=== PATIENT | male | born 1950 | race Caucasian/White ===

== ENCOUNTER → 2024-07-04 | Outpatient (REF) | payer MEDICARE ==
[2024-06-25 14:22] LABS: BASOPHILS % 0.4 % (0.0-1.0); EOSINOPHILS % 1.6 % (0.0-6.0); HEMATOCRIT 31.4 % (38.2-49.6); HEMOGLOBIN 10.1 g/dL (14.0-18.0); LYMPHOCYTES # (AUTO) 0.7 (1.0-3.2); LYMPHOCYTES % 27.4 % (18.0-39.1); MEAN CORPUSCULAR HEMOGLOBIN 30.6 pg (28-32); MEAN CORPUSCULAR HGB CONC 32.2 g/dL (31-35); MEAN CORPUSCULAR VOLUME 95.2 fL (81-99); MONOCYTES # (AUTO) 0.2 (0.2-0.8); MONOCYTES % 7.5 % (4.4-11.3); NEUTROPHILS # (AUTO) 1.6 (2.1-6.9); NEUTROPHILS % 63.1 % (38.7-80.0); PLATELET COUNT 64 x10e3/uL (140-360); RED CELL DISTRIBUTION WIDTH 14.1 % (11.7-14.4); WHITE BLOOD COUNT 2.52 x10e3/uL (4.8-10.8)
[2024-06-25 14:45] LABS: INR 1.18; PROTHROMBIN TIME 15.7 seconds (11.9-14.5)
[2024-06-25 14:46] LABS: PARTIAL THROMBOPLASTIN TIME 31.6 seconds (23.8-35.5)
[2024-06-25 14:50] LABS: ANION GAP 11.3 mmol/L (8-16); CALCIUM 8.3 mg/dL (8.4-10.2); CREATININE, SERUM 1.82 mg/dL (0.72-1.25); POTASSIUM 4.3 mmol/L (3.5-5.1)
[~2024-07-04] MED LIST: CLOPIDOGREL75 MG PO; FLOMAX0.4 MG PO; GABAPENTIN300 MG PO; IRON INFUSION IV; LIPITOR20 MG PO; LOSARTAN POTAS100 MG PO; LOVENOX40 MG/0.4 SC; OMEPRAZOLE40 MG PO; OZEMPIC2 MG/0.75 PO; POTASSIUM CHLO10 ME1 PO; SERTRALINE HCL100 MG PO; VITAMIN B12 IM; VITAMIN D250 MCG PO
== END ==
LOC: OR 05:00 → EDSTATUS 08:00 → RAD 08:00
PROVIDERS: ATTEND Internal Medicine Gastroenterology
DX: Z01.818 Encounter for other preprocedural examination (principal); Z12.11 Encounter for screening for malignant neoplasm of colon; R13.10 Dysphagia, unspecified; I10 Essential (primary) hypertension; E11.9 Type 2 diabetes mellitus without complications; Z68.29 Body mass index [BMI] 29.0-29.9, adult; Z71.3 Dietary counseling and surveillance; Z87.891 Personal history of nicotine dependence
CPT/HCPCS: 36415; 80048; 85025; 85610; 85730; 93005

== ENCOUNTER → 2024-07-18 | Day surgery (SDC) | payer MEDICARE ==
[2024-07-18 10:46] VITALS: TEMP 97.4
[2024-07-18 11:06] VITALS: BP 133/84; PULSE 60; RESP 18; O2SAT 99
== END | disposition home or self-care (01) ==
LOC: OR 08:33
PROVIDERS: ATTEND Internal Medicine Gastroenterology
DX: Z12.11 Encounter for screening for malignant neoplasm of colon (principal); K57.30 Diverticulosis of large intestine without perforation or abscess without bleeding; K64.8 Other hemorrhoids; D12.3 Benign neoplasm of transverse colon; R13.10 Dysphagia, unspecified; K21.9 Gastro-esophageal reflux disease without esophagitis; Z98.84 Bariatric surgery status
CPT/HCPCS: 36415; 43235; 45385; 82948; 88305

== ENCOUNTER → 2024-08-19 | Outpatient (REF) | payer MEDICARE ==
[~2024-08-19] MED LIST changes: +IOPAMIDOL 370 MG/ML 100 ML INFUS..BTL INJ ONE; +SODIUM CHLORIDE 0.9% 500ML 500 ML ONE
[2024-08-19 10:36] LABS: EST GLOMERULAR FILTRATION RATE 33.0 ML/MIN (>=60)
== END ==
LOC: CT 08:30
PROVIDERS: ATTEND Student in an Organized Health Care Education/Training Program
DX: R19.09 Other intra-abdominal and pelvic swelling, mass and lump (principal)
CPT/HCPCS: 36415; 74177; 82565; 84520; 96360; J7040; Q9967

== ENCOUNTER → 2024-08-19 | Outpatient (REF) | payer MEDICARE ==
[~2024-08-19] MED LIST changes: -IOPAMIDOL 370 MG/ML 100 ML INFUS..BTL INJ ONE; -SODIUM CHLORIDE 0.9% 500ML 500 ML ONE
== END ==
LOC: US 08:59
PROVIDERS: ATTEND Internal Medicine Hematology & Oncology
DX: D61.818 Other pancytopenia (principal)
CPT/HCPCS: 76700

== ENCOUNTER 2024-09-27 16:43 | Inpatient (IN) | payer MEDICARE, OTHER ==
[~2024-09-27] VITALS: Ht 162.6 cm; Wt 75.7 kg
[2024-09-27 17:14] VITALS: TEMP 98.4
[2024-09-27] MEDS: TRAMADOL HCL 50 MG TAB PO ONE (19:03)
[2024-09-27] MEDS: KETOROLAC TROMETHAMINE 30 MG/ML VIAL IM STA (19:03)
[2024-09-27 19:45] VITALS: PULSE 95; RESP 18
[2024-09-27] MEDS: SODIUM CHLORIDE 0.9% 1000ML 1,000 ML IV SCH (20:40)
[2024-09-27] MEDS: Morphine 4mg INJECTION 4 MG/ML INJ IV PRN (20:40)
[2024-09-27 22:33] LABS: EST GLOMERULAR FILTRATION RATE 37.0 ML/MIN (>=60)
[2024-09-27 22:34] LABS: BASOPHILS % 0.3 % (0.0-1.0); EOSINOPHILS % 0.0 % (0.0-6.0); LYMPHOCYTES % 5.2 % (18.0-39.1); MONOCYTES % 8.0 % (4.4-11.3); NEUTROPHILS % 86.0 % (38.7-80.0); RED CELL DISTRIBUTION WIDTH 13.1 % (11.7-14.4)
[2024-09-28] VITALS (13 sets, daily range): BP systolic 119–165; BP diastolic 72–107; PULSE 65–86; RESP 16–18; TEMP 97.5–98.8; O2SAT 95–99
[2024-09-28] MEDS: ONDANSETRON HCL INJ 2MG/ML 2ML 2 MG/ML VIAL IV PRN (01:49)
[2024-09-28 06:26] LABS: BASOPHILS % 0.3 % (0.0-1.0); EOSINOPHILS % 1.6 % (0.0-6.0); LYMPHOCYTES % 14.4 % (18.0-39.1); MONOCYTES % 6.1 % (4.4-11.3); NEUTROPHILS % 77.3 % (38.7-80.0); RED CELL DISTRIBUTION WIDTH 13.2 % (11.7-14.4)
[2024-09-28 06:56] LABS: EST GLOMERULAR FILTRATION RATE 38.0 ML/MIN (>=60)
[2024-09-28] MEDS ORDERED: HYDROCODON-ACE1 EAC9 PO (07:31)
[2024-09-28] MEDS ORDERED: TIZANIDINE HCL4 MG PO (07:31)
[2024-09-28] MEDS ORDERED: DIAZEPAM10 MG PO (07:31)
[2024-09-28] MEDS ORDERED: ONDANSETRON HCL INJ 2MG/ML 2ML 2 MG/ML VIAL IV PRN (09:45)
[2024-09-28] MEDS ORDERED: DIAZEPAM 5 MG TAB PO PRN (09:45)
[2024-09-28] MEDS ORDERED: HYDRALAZINE HCL 20 MG/ML VIAL IV PRN (09:45)
[2024-09-28 10:28] LABS: % IRON SATURATION 15 % (15-50)
[2024-09-28] MEDS ORDERED: GABAPENTIN 300 MG CAP PO SCH (14:00)
[2024-09-28] MEDS: TAMSULOSIN HCL 0.4 MG CAP PO SCH (16:44)
[2024-09-28] MEDS: SERTRALINE HCL 100 MG TAB PO SCH (16:44)
[2024-09-28] MEDS: DEXTROSE 5%/0.45% SOD CHL 1,000 ML IV SCH (16:46)
[2024-09-28] MEDS: TIZANIDINE HCL 4 MG TAB PO SCH (21:22)
[2024-09-28] MEDS: GABAPENTIN 300 MG CAP PO SCH (21:22)
[2024-09-28] MEDS: ATORVASTATIN 40 MG TAB PO SCH (21:22)
[2024-09-29] VITALS (8 sets, daily range): BP systolic 115–143; BP diastolic 70–77; PULSE 60–104; RESP 16–20; TEMP 97.5–98.7; O2SAT 94–98
[2024-09-29 06:00] LABS: BASOPHILS % 0.4 % (0.0-1.0); EOSINOPHILS % 3.9 % (0.0-6.0); LYMPHOCYTES % 21.0 % (18.0-39.1); MONOCYTES % 8.2 % (4.4-11.3); NEUTROPHILS % 66.1 % (38.7-80.0); RED CELL DISTRIBUTION WIDTH 13.3 % (11.7-14.4)
[2024-09-29] MEDS: PANTOPRAZOLE SOD 40 MG TABEC PO SCH (06:00)
[2024-09-29 06:54] LABS: EST GLOMERULAR FILTRATION RATE 40.0 ML/MIN (>=60)
[2024-09-29] MEDS: LOSARTAN POTASSIUM 100 MG TAB PO SCH (09:10)
[2024-09-29] MEDS ORDERED: LIDOCAINE HCL 2% LOCAL INJ 5 ML SDV VIAL INJ ONE (13:02)
[2024-09-29] MEDS ORDERED: FENTANYL CITRATE/PF 100MCG/2 ML INJ ONE (13:03)
[2024-09-29] MEDS ORDERED: PROPOFOL IV EMULSION 10 MG/ML 20 ML VIAL ONE (13:03)
[2024-09-29] MEDS ORDERED: ROCURONIUM BROMIDE 1 ML IV ONE (13:03)
[2024-09-29] MEDS ORDERED: DEXAMETHASONE SOD PHOS INJ 4 MG/ML SDV ONE (14:02)
[2024-09-29] MEDS ORDERED: EPHEDRINE SULFATE INJ 50 MG/ML VIAL ONE (14:03)
[2024-09-29] MEDS ORDERED: ACETAMINOPHEN 1000 MG/100 ML 100 ML IV ONE (15:16)
[2024-09-29] MEDS ORDERED: HYDROMORPHONE 2MG/ML ONE (15:31)
[2024-09-29] MEDS ORDERED: ONDANSETRON HCL INJ 2MG/ML 2ML 2 MG/ML VIAL ONE (15:39)
[2024-09-29] MEDS ORDERED: SUGAMMADEX SODIUM 200 MG/2 ML VIAL IV ONE (15:55)
[2024-09-29] MEDS: Morphine 4mg INJECTION 4 MG/ML INJ IV ONE (17:12)
[2024-09-30] VITALS (11 sets, daily range): BP systolic 122–157; BP diastolic 71–88; PULSE 56–76; RESP 16–20; TEMP 97.6–98.1; O2SAT 93–96
[2024-09-30] MEDS: ROPIVACAINE 123 MG, EPINEPHRINE HCL 1:1000 1ML 0.25 MG, CLONIDINE HCL 0.04 MG, KETOROLA... INJ ONE ×2 (09:18)
[2024-09-30] MEDS: METOPROLOL SUCCINATE 25 MG TAB XL PO SCH (09:21)
[2024-09-30] MEDS: LOSARTAN POTASSIUM 100 MG TAB PO SCH (09:22)
[2024-09-30] MEDS: ASPIRIN 81 MG CHEW TAB PO SCH (09:26)
[2024-10-01] VITALS (9 sets, daily range): BP systolic 117–139; BP diastolic 49–87; PULSE 63–88; RESP 18–21; TEMP 97.9–98.4; O2SAT 95–100
[2024-10-01 06:34] LABS: BASOPHILS % 0.0 % (0.0-1.0); EOSINOPHILS % 3.4 % (0.0-6.0); LYMPHOCYTES % 23.0 % (18.0-39.1); MONOCYTES % 9.6 % (4.4-11.3); NEUTROPHILS % 63.4 % (38.7-80.0); RED CELL DISTRIBUTION WIDTH 13.0 % (11.7-14.4)
[2024-10-01 06:57] LABS: EST GLOMERULAR FILTRATION RATE 36.0 ML/MIN (>=60)
[2024-10-02] VITALS (9 sets, daily range): BP systolic 116–137; BP diastolic 55–87; PULSE 55–75; RESP 16–18; TEMP 97.8–98.7; O2SAT 92–100
[2024-10-02] MEDS: HYDROCODONE/APAP 10MG-325MG TAB PO PRN (14:48)
[2024-10-02] MEDS: DOCUSATE SODIUM 100 MG CAP PO PRN (16:47)
[2024-10-03] VITALS (10 sets, daily range): BP systolic 127–148; BP diastolic 67–81; PULSE 59–78; RESP 16–20; TEMP 97.9–98.6; O2SAT 93–100
[2024-10-03 06:29] LABS: BASOPHILS % 0.5 % (0.0-1.0); EOSINOPHILS % 2.7 % (0.0-6.0); LYMPHOCYTES % 26.7 % (18.0-39.1); MONOCYTES % 10.4 % (4.4-11.3); NEUTROPHILS % 59.2 % (38.7-80.0); RED CELL DISTRIBUTION WIDTH 13.0 % (11.7-14.4)
[2024-10-03 06:57] LABS: EST GLOMERULAR FILTRATION RATE 39.0 ML/MIN (>=60)
[2024-10-03 07:36] LABS: PHOSPHORUS 2.7 MG/DL (2.3-4.7)
[2024-10-04] VITALS (11 sets, daily range): BP systolic 132–152; BP diastolic 67–84; PULSE 57–76; RESP 18–20; TEMP 97.6–98.6; O2SAT 93–100
[2024-10-05] VITALS (11 sets, daily range): BP systolic 118–148; BP diastolic 65–98; PULSE 52–74; RESP 17–20; TEMP 97.4–98.3; O2SAT 92–99
[2024-10-05 07:11] LABS: BASOPHILS % 0.6 % (0.0-1.0); EOSINOPHILS % 4.4 % (0.0-6.0); LYMPHOCYTES % 27.8 % (18.0-39.1); MONOCYTES % 10.6 % (4.4-11.3); NEUTROPHILS % 56.0 % (38.7-80.0); RED CELL DISTRIBUTION WIDTH 12.8 % (11.7-14.4)
[2024-10-05 07:38] LABS: EST GLOMERULAR FILTRATION RATE 42.0 ML/MIN (>=60)
[2024-10-05] MEDS: GABAPENTIN 300 MG CAP PO SCH (10:28)
[2024-10-05] MEDS: CELECOXIB 100 MG CAP PO SCH (10:28)
[2024-10-05] MEDS: MAGNESIUM OXIDE 400 MG TAB PO SCH (10:29)
[2024-10-06] VITALS (8 sets, daily range): BP systolic 130–136; BP diastolic 70–84; PULSE 61–79; RESP 17–21; TEMP 97.6–98.9; O2SAT 94–100
[2024-10-06] MEDS: IRON SUCROSE 100 MG in SODIUM CHLORIDE 0.9% 100 ML IV SCH (23:19)
[2024-10-07] VITALS (7 sets, daily range): BP systolic 108–139; BP diastolic 65–90; PULSE 52–103; RESP 18–20; TEMP 97.9–98.4; O2SAT 95–97
[2024-10-07] MEDS: TAMSULOSIN HCL 0.4 MG CAP PO SCH (09:23)
== END 2024-10-07 17:44 | DRG 522 ==
LOC: ER 18:20 → ERHOLD 19:29 → MED/SURG3 20:45
PROVIDERS: ADMIT Internal Medicine; ATTEND Internal Medicine
PROC: 0SRS0JZ Replacement of Left Hip Joint, Femoral Surface with Synthetic Substitute, Open Approach (ICD-10-PCS; principal; 2024-09-29 13:20)
DX: S72.032A Displaced midcervical fracture of left femur, initial encounter for closed fracture (principal); D61.818 Other pancytopenia; D62 Acute posthemorrhagic anemia; D69.6 Thrombocytopenia, unspecified; E11.9 Type 2 diabetes mellitus without complications; I10 Essential (primary) hypertension; E03.9 Hypothyroidism, unspecified; I25.10 Atherosclerotic heart disease of native coronary artery without angina pectoris; K21.9 Gastro-esophageal reflux disease without esophagitis; G89.4 Chronic pain syndrome; E78.5 Hyperlipidemia, unspecified; F41.9 Anxiety disorder, unspecified; E66.9 Obesity, unspecified; W19.XXXA Unspecified fall, initial encounter; Y92.480 Sidewalk as the place of occurrence of the external cause; Z79.85 Long-term (current) use of injectable non-insulin antidiabetic drugs; Z79.02 Long term (current) use of antithrombotics/antiplatelets; Z95.5 Presence of coronary angioplasty implant and graft; Z98.84 Bariatric surgery status; Z90.49 Acquired absence of other specified parts of digestive tract; Z87.891 Personal history of nicotine dependence
CPT/HCPCS: 36415; 70450; 71045; 72125; 72170; 80048; 80053; 83036; 83540; 83735; 84100; 84443; 84466; 85014; 85018; 85025; 93005; 93306; 94799; 99252; 99284; C1776; J0169; J0690; J1100; J1171; J1756; J1885; J2003; J2270; J2405; J2470; J2795; J7030; J7050

== ENCOUNTER 2024-11-22 17:25 | Inpatient (IN) | payer MEDICARE, OTHER ==
[~2024-11-22] VITALS: Ht 157.5 cm; Wt 73.9 kg
[~2024-11-22 17:25] MED LIST changes: +DIAZEPAM10 MG PO; +HYDROCODON-ACE1 EAC9 PO; +TIZANIDINE HCL4 MG PO
[2024-11-22] MEDS: Morphine 4mg INJECTION 4 MG/ML INJ IV ONE (18:25)
[2024-11-22] MEDS: ONDANSETRON HCL INJ 2MG/ML 2ML 2 MG/ML VIAL IV STA (18:25)
[2024-11-22] MEDS: HYDROMORPHONE 1MG/1ML INJ IV STA (20:24)
[2024-11-22] MEDS ORDERED: SEVOFLURANE INHAL SOLN 250 ML PEN BTL ONE (23:07)
[2024-11-23] VITALS (13 sets, daily range): BP systolic 118–154; BP diastolic 74–125; PULSE 64–95; RESP 16–20; TEMP 97.5–98.5; O2SAT 95–100
[2024-11-23] MEDS: ONDANSETRON HCL INJ 2MG/ML 2ML 2 MG/ML VIAL IV PRN (01:33)
[2024-11-23] MEDS: ETOMIDATE 2 MG/ML 10 ML INJ IV STA (01:34)
[2024-11-23] MEDS: HYDROMORPHONE 1MG/1ML INJ IV PRN (01:34)
[2024-11-23] MEDS: SODIUM CHLORIDE 0.9% 1000ML 1,000 ML IV SCH (01:34)
[2024-11-23 01:35] LABS: BASOPHILS % 0.2 % (0.0-1.0); EOSINOPHILS % 0.7 % (0.0-6.0); LYMPHOCYTES % 18.9 % (18.0-39.1); MONOCYTES % 6.4 % (4.4-11.3); NEUTROPHILS % 73.4 % (38.7-80.0); RED CELL DISTRIBUTION WIDTH 14.5 % (11.7-14.4)
[2024-11-23] MEDS: FENTANYL CITRATE/PF 100MCG/2 ML INJ IV ONE (01:35)
[2024-11-23 01:53] LABS: INR 1.27
[2024-11-23 01:59] LABS: EST GLOMERULAR FILTRATION RATE 37.0 ML/MIN (>=60)
[2024-11-23] MEDS ORDERED: DIAZEPAM 5 MG TAB PO PRN (12:15)
[2024-11-23] MEDS: HYDROMORPHONE 1MG/1ML INJ IV STA (14:09)
[2024-11-23] MEDS: KETOROLAC TROMETHAMINE 30 MG/ML VIAL IV ONE (14:10)
[2024-11-23] MEDS: TIZANIDINE HCL 4 MG TAB PO SCH (14:11)
[2024-11-23] MEDS: GABAPENTIN 300 MG CAP PO SCH (14:11)
[2024-11-23] MEDS: SERTRALINE HCL 100 MG TAB PO SCH (17:42)
[2024-11-24] VITALS (11 sets, daily range): BP systolic 102–136; BP diastolic 59–99; PULSE 52–81; RESP 16–20; TEMP 97.2–100; O2SAT 90–99
[2024-11-24] MEDS ORDERED: MIDAZOLAM HCL 2 MG/2 ML VIAL ONE (06:41)
[2024-11-24] MEDS ORDERED: PROPOFOL IV EMULSION 10 MG/ML 20 ML VIAL ONE (06:42)
[2024-11-24] MEDS ORDERED: ONDANSETRON HCL INJ 2MG/ML 2ML 2 MG/ML VIAL ONE (06:42)
[2024-11-24] MEDS ORDERED: LIDOCAINE HCL 2% LOCAL INJ 5 ML SDV VIAL INJ ONE (06:42)
[2024-11-24] MEDS ORDERED: FENTANYL CITRATE/PF 100MCG/2 ML INJ ONE (06:42)
[2024-11-24] MEDS ORDERED: METOCLOPRAMIDE HCL 10 MG/2ML VIAL ONE (06:42)
[2024-11-24] MEDS ORDERED: SUCCINYLCHOLINE CHLORIDE 20 MG/ML 10ML VIAL ONE (06:48)
[2024-11-24] MEDS ORDERED: ETOMIDATE 40 MG/ 20ML VIAL IV ONE (06:48)
[2024-11-24] MEDS: TAMSULOSIN HCL 0.4 MG CAP PO SCH (09:56)
[2024-11-24] MEDS: PANTOPRAZOLE SOD 40 MG TABEC PO SCH (09:57)
[2024-11-24] MEDS: LOSARTAN POTASSIUM 100 MG TAB PO SCH (10:02)
[2024-11-24] MEDS: HYDROCODONE/APAP 10MG-325MG TAB PO PRN (21:13)
[2024-11-25] VITALS (8 sets, daily range): BP systolic 113–154; BP diastolic 62–86; PULSE 50–76; RESP 16–18; TEMP 97.4–98.8; O2SAT 94–98
[2024-11-26] VITALS (10 sets, daily range): BP systolic 142–179; BP diastolic 79–87; PULSE 60–74; RESP 16–20; TEMP 97.7–98.5; O2SAT 95–97
[2024-11-27] VITALS (11 sets, daily range): BP systolic 120–173; BP diastolic 60–85; PULSE 53–86; RESP 16–20; TEMP 97.5–98.3; O2SAT 96–100
[2024-11-27 06:16] LABS: BASOPHILS % 0.5 % (0.0-1.0); EOSINOPHILS % 3.2 % (0.0-6.0); LYMPHOCYTES % 37.0 % (18.0-39.1); MONOCYTES % 7.9 % (4.4-11.3); NEUTROPHILS % 51.4 % (38.7-80.0); RED CELL DISTRIBUTION WIDTH 14.0 % (11.7-14.4)
[2024-11-27 06:52] LABS: EST GLOMERULAR FILTRATION RATE 38.0 ML/MIN (>=60)
[2024-11-27 09:46] LABS: EOSINOPHILS % (MANUAL) 1 % (0-7); LYMPHOCYTES % (MANUAL) 34 % (19-48); MONOCYTES % (MANUAL) 3 % (3.4-9.0); NEUTROPHILS % (MANUAL) 62 % (40-74); PLATELET ESTIMATE MODERATELY DECREASED; PLATELET MORPHOLOGY COMMENT NORMAL; RBC MORPHOLOGY COMMENT NORMAL
[2024-11-28] VITALS (10 sets, daily range): BP systolic 128–167; BP diastolic 65–95; PULSE 53–78; RESP 17–20; TEMP 97.4–98.1; O2SAT 93–99
[2024-11-29] VITALS (10 sets, daily range): BP systolic 121–154; BP diastolic 71–99; PULSE 50–79; RESP 17–20; TEMP 97.8–98.4; O2SAT 95–100
[2024-11-30] VITALS (7 sets, daily range): BP systolic 121–163; BP diastolic 66–91; PULSE 47–68; RESP 17–20; TEMP 98.3–98.8; O2SAT 94–98
[2024-11-30 06:48] LABS: BASOPHILS % 0.6 % (0.0-1.0); EOSINOPHILS % 2.3 % (0.0-6.0); LYMPHOCYTES % 37.0 % (18.0-39.1); MONOCYTES % 8.7 % (4.4-11.3); NEUTROPHILS % 51.4 % (38.7-80.0); RED CELL DISTRIBUTION WIDTH 14.2 % (11.7-14.4)
[2024-11-30 07:03] LABS: EST GLOMERULAR FILTRATION RATE 44.0 ML/MIN (>=60)
[2024-11-30 11:20] LABS: LYMPHOCYTES % (MANUAL) 34 % (19-48); MONOCYTES % (MANUAL) 2 % (3.4-9.0); NEUTROPHILS % (MANUAL) 64 % (40-74); PLATELET ESTIMATE MODERATELY DECREASED; PLATELET MORPHOLOGY COMMENT NORMAL
== END 2024-11-30 18:50 | disposition left against medical advice (07) | DRG 560 ==
LOC: ER 18:08 → ERHOLD 23:19 → MED/SURG3 11-23 01:56 → OBSVTOIN 11-25 10:03
PROVIDERS: ADMIT Internal Medicine; ATTEND Internal Medicine
PROC: 0SSBXZZ Reposition Left Hip Joint, External Approach (ICD-10-PCS; principal; 2024-11-24 07:06)
DX: T84.021A Dislocation of internal left hip prosthesis, initial encounter (principal); D61.818 Other pancytopenia; E11.22 Type 2 diabetes mellitus with diabetic chronic kidney disease; I12.9 Hypertensive chronic kidney disease with stage 1 through stage 4 chronic kidney disease, or unspecified chronic kidney disease; N18.9 Chronic kidney disease, unspecified; E03.9 Hypothyroidism, unspecified; I25.10 Atherosclerotic heart disease of native coronary artery without angina pectoris; F41.9 Anxiety disorder, unspecified; K21.9 Gastro-esophageal reflux disease without esophagitis; E78.5 Hyperlipidemia, unspecified; W01.0XXA Fall on same level from slipping, tripping and stumbling without subsequent striking against object, initial encounter; Y83.1 Surgical operation with implant of artificial internal device as the cause of abnormal reaction of the patient, or of later complication, without mention of misadventure at the time of the procedure; Z79.02 Long term (current) use of antithrombotics/antiplatelets; Z79.85 Long-term (current) use of injectable non-insulin antidiabetic drugs; Z89.622 Acquired absence of left hip joint; Z90.49 Acquired absence of other specified parts of digestive tract; Z98.84 Bariatric surgery status; Y92.512 Supermarket, store or market as the place of occurrence of the external cause
CPT/HCPCS: 36415; 76000; 80048; 85025; 85610; 85730; 94799; 99284; G0378; J0330; J1171; J1885; J2003; J2250; J2270; J2405; J2470; J2765; J7030